=== PATIENT | female | born 1985 | race African-American/Black ===

== ENCOUNTER 2020-10-07 15:44 | Emergency (ER) | payer OTHER ==
[2020-10-07 15:53] VITALS: BMI 30.1
[2020-10-07 16:35] VITALS: TEMP 98.1
[2020-10-07 17:43] VITALS: BP 127/78; PULSE 114
[2020-10-07] MEDS ORDERED: DEXTROSE 5%-LACTATED RINGERS 1,000 ML IV SCH (18:45)
[2020-10-07] MEDS ORDERED: INDOMETHACIN 25 MG CAPSULE PO SCH ×3 (18:46→19:00)
[2020-10-07 20:46] LABS: URINE APPEARANCE CLEAR; URINE BILIRUBIN NEGATIVE (NEGATIVE); URINE COLOR YELLOW; URINE GLUCOSE (UA) NEGATIVE (NEGATIVE); URINE KETONE 3+ (NEGATIVE); URINE LEUK ESTERASE NEGATIVE (NEGATIVE); URINE NITRITE NEGATIVE (NEGATIVE); URINE PROTEIN NEGATIVE (NEGATIVE); URINE UROBILINOGEN 0.2 mg/dL (0.2-1.0)
== END 2020-10-07 21:20 | disposition home or self-care (01) ==
LOC: JER 15:44
DX: O26.892 Other specified pregnancy related conditions, second trimester (principal); R10.30 Lower abdominal pain, unspecified; Z3A.24 24 weeks gestation of pregnancy
CPT/HCPCS: 76815; 76817-TC; 81003; 99284-25